=== PATIENT | female | born 2000 | race Caucasian/White ===

== ENCOUNTER 2022-04-14 18:38 | Emergency (ER) | payer OTHER ==
[~2022-04-14] VITALS: Ht 152.4 cm; Wt 87.1 kg
== END 2022-04-14 22:17 ==
LOC: ED 18:38
DX: S51.811A Laceration without foreign body of right forearm, initial encounter (principal); W25.XXXA Contact with sharp glass, initial encounter; Y93.89 Activity, other specified; Y92.89 Other specified places as the place of occurrence of the external cause; Y99.9 Unspecified external cause status

== ENCOUNTER 2022-04-17 14:25 | Emergency (ER) | payer BC, OTHER ==
[~2022-04-17] VITALS: Ht 152.4 cm; Wt 86.6 kg
[2022-04-17] MEDS ORDERED: HIBICLENS118 ML T (16:28)
== END 2022-04-17 18:00 | disposition home or self-care (01) ==
LOC: ED 14:25
DX: S40.851A Superficial foreign body of right upper arm, initial encounter (principal); W25.XXXA Contact with sharp glass, initial encounter; Y93.89 Activity, other specified; Y92.89 Other specified places as the place of occurrence of the external cause; Y99.8 Other external cause status

== ENCOUNTER 2022-04-30 08:20 | Emergency (ER) | payer BC, OTHER ==
[~2022-04-30] VITALS: Wt 86.6 kg
[~2022-04-30 08:20] MED LIST: HIBICLENS118 ML T
== END 2022-04-30 09:05 | disposition home or self-care (01) ==
LOC: ED 08:20
DX: S61.411D Laceration without foreign body of right hand, subsequent encounter (principal); X58.XXXD Exposure to other specified factors, subsequent encounter

== ENCOUNTER 2024-04-21 09:23 | Emergency (ER) | payer BC, OTHER ==
[~2024-04-21] VITALS: Ht 152.4 cm; Wt 65.8 kg
[2024-04-21 09:59] LABS: BASO # 0.1 10*3/uL (0.0-0.1); BASO % 0.5 % (0.0-1.0); EOS # 0.3 10*3/uL (0.0-0.4); EOS % 2.4 % (1.0-4.0); HEMATOCRIT 39.5 % (37.0-47.0); LYMPH % 18.6 % (27.0-41.0); MEAN CELL VOLUME 87.4 fl (81.0-99.0); MEAN CORPUSCULAR HGB 28.5 pg (27.0-31.0); MEAN CORPUSCULAR HGB CONC 32.7 g/dl (33.0-37.0); MEAN PLATELET VOLUME 10.2 fl (9.6-12.3); MONO # 0.6 10*3/uL (0.1-1.0); MONO % 5.8 % (3.0-9.0); NEUT # 7.9 10*3/uL (2.3-7.9); NEUT % 72.4 % (47.0-73.0); PLATELET COUNT AUTOMATED 299 10*3/uL (130-400); RED BLOOD COUNT 4.52 10*6/uL (4.10-5.10); RED CELL DISTRI WIDTH 12.4 % (0-14.5)
[2024-04-21 10:18] LABS: BUN 10 mg/dl (9-23); CHLORIDE 107 mmol/L (98-107); POTASSIUM 3.4 mmol/L (3.4-5.1)
[2024-04-21 10:21] LABS: BILIRUBIN Negative (Negative); BLOOD Negative (Negative); CLARITY Cloudy (Clear); COLOR Yellow (Yellow); GLUCOSE Negative (Negative); KETONE Negative (Negative); LEUKO ESTERASE 3+ (Negative); NITRITE Negative (Negative); SPECIFIC GRAVITY 1.015 (1.001-1.030)
[2024-04-21 10:40] LABS: BACTERIA 3+; EPITHELIAL CELLS 31-40; WBC 41-50 wbc/hpf (0-5)
[2024-04-21] MEDS ORDERED: CEPHALEXIN 500 MG CAP PO ONE (11:40)
[2024-04-21] MEDS ORDERED: CEPHALEXIN500 M1 PO (11:40)
== END 2024-04-21 11:59 | disposition home or self-care (01) ==
LOC: ED 09:23
PROVIDERS: Nurse Practitioner Family
DX: N39.0 Urinary tract infection, site not specified (principal)